=== PATIENT | male | born 1940 | race Caucasian/White ===

== ENCOUNTER 2016-11-28 15:08 | Inpatient (IN) | payer MEDICARE ==
--- NOTE | ~2016-11-28 | HP ---
History And Physical [place] [address] [facility] [place]. [address] NAME: CRISTOPHER REID JR : 40 STATUS : ADM IN [facility]#: [id number] AGE: 76 ADM/REG DATE : 11/28/16 MR#: [id number] REPORT SERV DATE: 11/28/16 DICTATED BY: MARTIN JACKSON DATE: 11/28/16 REPORT STATUS : Draft TRANSCRIBED BY: MODBear DATE: 11/28/16 DATE OF ADMISSION: 11/28/2016 HISTORY OF PRESENT ILLNESS: The patient is a very pleasant 76-year-old male, who presented to [facility] because of his severe inspiratory pain in his back as well as shortness of breath started yesterday morning at 8 a.m. On the day before, he had some sensation of nausea which was unexplainable. The patient reported that he was doing well until yesterday at 8 a.m. when he woke up, he tried to take a deep breath and had a severe back pain especially on the right side. It was getting worse, worsening on deep inspiration. He was short of breath, and he had significant hemoptysis. He coughed up blood. He denies any chest pain. No fever. No rash. No headache. His oxygen saturation on presentation was 86%. The patient said that he never had similar symptoms before. He did not travel anywhere recently by car or he did not have a long flight. He did not have any trauma to his legs. He did not have any recent surgeries. He does not have any family history of clotting disorders. He does not have any history of cancer. He denies any leg pain or leg swelling as well. PAST MEDICAL HISTORY: According to the patient, he has a history of diabetes on oral medications. He said that he has a history of COPD. He uses his oxygen only at night. He has a history of obstructive sleep apnea. 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 Also according to information here in the computer since the patient is a poor historian, he had an echocardiogram done on 10/31/2016 less than a month ago and it showed that he had mildly dilated left ventricle with low normal or mildly elevated reduced systolic function with ejection fraction to 45% to 50% and mild mitral stenosis with mild regurgitation and he had also moderate aortic stenosis. The patient reported that he had a history of heart attack in the past. No stents. No coronary artery bypass grafting. His tours hostess is Dr. Rosales. He has also history of hypertension and hyperlipidemia. 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 SOCIAL HISTORY: He used to live alone, but now he is relocating and going to live with his sister and he is in the process of moving. He still smokes. He used to smoke one pack a day for many years, but now he smokes a couple of cigarettes. No alcohol. No recreational drug use. FAMILY HISTORY: Mother of lung cancer. Father of dissection of the aneurysm of the ascending aorta. HOME MEDICATIONS: Aspirin 325 mg daily, carvedilol 12.5 mg p.o. b.i.d., Tylenol 2 tablets as needed for sleep, losartan 100 mg daily, metformin 750 p.o. daily, multivitamins daily, and pravastatin 40 mg at bedtime. History And Physical [address] [address] NAME: CRISTOPHER REID JR : 40 STATUS : ADM IN [facility]#: [id number] AGE: 76 ADM/REG DATE : 11/28/16 MR#: [id number] REPORT SERV DATE: 11/28/16 DICTATED BY: MARTIN JACKSON DATE: 11/28/16 REPORT STATUS : Draft TRANSCRIBED BY: MODBear DATE: 11/28/16 REVIEW OF SYSTEMS: A 14-point review of systems done and all are negative except what is stated in the history of present illness. PHYSICAL EXAMINATION: GENERAL: Well-nourished well-developed male, not in acute distress. Resting quietly. VITAL SIGNS: Blood pressure 173/79 and then decreased to 150/70, heart rate 76, respiratory rate 24, oxygen saturation was 86% on room air and 94% on 2 L nasal cannula. HEENT: Head atraumatic, normocephalic. Conjunctivae clear. Pupils are equal and reactive to light and accommodation. Extraocular muscles are intact. NECK: Supple. Trachea is midline. No supraclavicular or cervical lymphadenopathy. LUNGS: Mild rales in the right lower lung. Decreased respiratory effort because of the inspiratory pain. The left lung looks clear. CARDIOVASCULAR SYSTEM: Regular rate and rhythm. Point of maximal impulse not displaced. ABDOMEN: Soft, nontender, nondistended. Positive normoactive bowel sounds. No organomegaly. EXTREMITIES: No clubbing or cyanosis. No edema. SKIN: Normal color and turgor. NEUROLOGIC: Awake, alert, and oriented to time, place, and person. Muscle strength is 5/5 bilaterally on upper and lower extremities. PSYCHIATRIC: Normal mood and affect. LABORATORY RESULTS: Sodium 140, potassium 4.4, chloride 105, carbon dioxide 25, BUN 22, creatinine 0.82, blood sugar is 126. Troponin is less than 0.02. White count 11.6, hemoglobin 14.8, hematocrit 44.1, MCV 102.8, and a platelet count 180. PT 14.9 and INR 1.2. Influenza A and B screen be negative. Chest x-ray: Increased interstitial prominence likely related to fibrosis. The differential diagnosis will include superimposed interstitial edema. No pleural effusions. CTA of the chest, which was done in the emergency room, showed large burden of pulmonary emboli with large saddle embolus extending across the midline. Possible developing pulmonary infarction in the right upper lung, chronic pulmonary fibrosis. EKG showed normal sinus rhythm with left ventricular hypertrophy. Inferior infarction of undetermined age. Cannot rule out anterior infarction of indeterminate age. Ventricular rate of 75. ASSESSMENT AND PLAN: 1. This is a very pleasant 76-year-old male who with a past medical history of pulmonary fibrosis, tobacco use, history of coronary artery disease with a history moderate aortic stenosis and some valvular disease and mild chronic systolic dysfunction, presented with large saddle pulmonary embolism with pulmonary infarction. It is unclear what triggered these infarction since the patient denied any risk factors. The patient is already started on heparin drip in the emergency room. We will continue heparin drip as well as we will start the patient on Coumadin and check PT/INR and History And Physical [address] [address] NAME: CRISTOPHER REID JR : 40 STATUS : ADM IN [facility]#: [id number] AGE: 76 ADM/REG DATE : 11/28/16 MR#: [id number] REPORT SERV DATE: 11/28/16 DICTATED BY: MARTIN JACKSON DATE: 11/28/16 REPORT STATUS : Draft TRANSCRIBED BY: LAVERN DATE: 11/28/16 Pharmacy will continue this. In the same time, I will ask heel caser to check the cost of Eliquis or Xarelto. I also told the patient that since this is a very large pulmonary embolism with pulmonary infarction, he will need to be most likely on long- time anticoagulation. We will also recommend him to follow up with track helper for further investigation why he had this large pulmonary embolism. 2. Hypertension will be treated as needed. We will continue his home antihypertensive medications. We will treat as needed as well the blood pressure will remain elevated. 3. I will reduce the dose of his home aspirin to 81 mg daily. 4. I will also reorder echocardiogram. The patient had an echocardiogram in October this year before the event, but I will repeat echocardiogram again to see if there is a right ventricular strain with such a large pulmonary embolism as well as I will order bilateral lower extremity ultrasound on this patient. Everything was discussed with the patient. The patient is currently stable. MG/LAVERN Martin Jackson M.D. / [id number] CC: Rashid Martinez M.D.
--- NOTE | ~2016-11-28 | DS ---
Discharge Summary [facility] [address] [place]. [address] NAME: CRISTOPHER REID JR : 40 STATUS : DIS IN PAT#: [id number] AGE: 76 ADM/REG DATE : 11/28/16 MR#: [id number] REPORT SERV DATE: 12/02/16 DICTATED BY: DATE: REPORT STATUS : Draft TRANSCRIBED BY: MODL DATE: 12/01/16 ADMISSION DATE: 11/28/2016 DISCHARGE DATE: 12/01/2016 [facility] DISCHARGE DIAGNOSES: 1. Saddle embolism. 2. Right lower extremity deep venous thrombosis. 3. Right upper lobe pulmonary infarct. 4. Chronic pulmonary fibrosis. 5. Hypertension. 6. Hyperlipidemia. 7. Coronary artery disease with prior non-ST elevation myocardial infarction. 8. Enw-mbbfjfj-oiymjiuyq diabetes mellitus type 2. IMAGIN. CTA of the chest showing a large saddle pulmonary embolus. 2. Bilateral lower extremity venous Doppler ultrasound showing extensive right lower extremity DVT. 3. Echocardiogram without evidence of right ventricular strain and normal pulmonary artery pressure. PERTINENT LABS: Hemoglobin 13.4, INR 1.2. Creatinine 0.8. Liver enzymes normal. Troponin negative. BNP negative. BRIEF HISTORY: For full details, please see the previously dictated history of present illness by Dr. Leanne Gandhi. This is a 76-year-old white male with past medical history of hypertension, hyperlipidemia, coronary artery disease, diabetes mellitus type 2, chronic pulmonary fibrosis, using nocturnal oxygen who presented to the emergency department with chief complaint of shortness of breath, feeling as if he was unable to catch his breath, and pleuritic right-sided chest pain. CTA in the emergency department revealed a large saddle pulmonary embolism. He was admitted to the Hospitalist Service for further management. HOSPITAL COURSE: The patient was placed on unfractionated heparin and Coumadin for management of the saddle embolus. Bilateral lower extremity venous Doppler ultrasounds were obtained revealing extensive right lower extremity DVT, but no left lower extremity thrombus. Surprisingly, the patient was asymptomatic from the right lower extremity DVT with no evidence of leg swelling, erythema, warmth, or Homans sign. Echocardiogram was obtained to evaluate for right ventricular strain given the extent of thromboembolism. There was normal pulmonary artery pressure with no evidence of right ventricular strain. BNP and troponin were negative as well. Thus, the patient was not felt to benefit from placement of an IVC filter, per current chest guidelines. Also per current chest guidelines, the patient is recommended to be discharged on a novel anticoagulant given that he is requiring minimal supplemental oxygen, with stable vital Discharge Summary [place] [id number] [place]. [address] NAME: CRISTOPHER REID JR : 40 STATUS : DIS IN PAT#: [id number] AGE: 76 ADM/REG DATE : 11/28/16 MR#: [id number] REPORT SERV DATE: 12/02/16 DICTATED BY: DATE: REPORT STATUS : Draft TRANSCRIBED BY: MODL DATE: 12/01/16 signs, no evidence of hypotension, tachycardia, or presyncope this admission. Xarelto has been chosen and is affordable per the patient's formulary, so he is being transitioned to Xarelto for discharge. He will need to take 15 mg p.o. twice a day for 21 days and then Xarelto 20 mg p.o. daily for the next six months, to be monitored outpatient by primary care provider, Dr. Rashid Martinez. The patient currently has been using oxygen only at night, but he did qualify for daytime oxygen usage as well, and was provided with an order for 2 L of oxygen to use continuously, until re-evaluated by Dr. Martinez. Interestingly, no risk factors for extensive venous thromboembolism could be determined this admission. The patient is up to date on his cancer screenings per him and has had no other risk factors of procoagulant medications, or prolonged immobility. He may need to be more extensively evaluated for occult malignancy in the outpatient setting. Defer to primary care provider. DISCHARGE DISPOSITION: The patient is discharged to home in the care of his family with no specific activity or dietary restrictions aside from wearing his oxygen 2 L continuously as above, and to follow up with Dr. Rashid Martinez within one to two weeks. DISCHARGE MEDICATIONS: 1. Aspirin 81 mg p.o. daily. 2. Coreg 12.5 mg p.o. twice a day. 3. Losartan 100 mg p.o. q.h.s. 4. Multivitamin one tablet p.o. daily. 5. Pravastatin 40 mg p.o. q.h.s. 6. Glucophage 750 mg p.o. daily. 7. Diphenhydramine two tablets p.o. q.h.s. p.r.n. insomnia. 8. Xarelto 15 mg p.o. b.i.d. for 15 days and then 20 mg p.o. daily for six months. 9. Lortab 5/325 mg p.o. q.6 hours p.r.n. pain, 30 tablets dispensed with no refills. Thirty five minutes was spent in completion of the discharge. OKSANA/LAVERN James Rosario M.D. / [id number] CC: Rashid Martinez M.D.
[2016-11-28 11:53] LABS: BASOPHILS 0.3 %; BASOPHILS ABSOLUTE 0.03 10/3/uL (0.0-0.16); EOSINOPHILS 2.4 %; EOSINOPHILS ABSOLUTE 0.28 10/3/uL (0.0-0.53); HEMATOCRIT 44.1 % (40.0-51.0); HEMOGLOBIN 14.8 g/dL (13.6-17.8); IMMATURE GRANULOCYTES 0.5 %; IMMATURE GRANULOCYTES ABSOLUTE 0.06 10/3/uL (0.0-0.11); LYMPHOCYTES 12.9 %; LYMPHOCYTES ABSOLUTE 1.49 10/3/uL (0.67-4.30); MEAN CORPUS HGB CONC 33.6 g/dL (32.0-36.0); MEAN CORPUSCULAR HEMOGLOB 34.5 pg (26.0-34.0); MEAN PLATELET VOLUME 9.6 fL (9.2-13.0); MONOCYTES 9.2 %; MONOCYTES ABSOLUTE 1.07 10/3/uL (0.21-1.20); NEUTROPHILS 74.7 %; NEUTROPHILS ABSOLUTE 8.66 10/3/uL (2.02-8.40); PLATELET COUNT 180 10/3/uL (150-400); RBC DISTRIBUTION WIDTH 13.4 % (12.0-16.0); RED CELL COUNT 4.29 10/6/uL (4.7-6.1)
[2016-11-28 11:55] LABS: ER CBC TAT 0 Hrs 10 Mins; MANUAL DIFF NO %; MEAN CORPUSCULAR VOLUME 102.8 fL (80-100); WHITE BLOOD CELLS 11.6 10/3/uL (4.5-10.5)
[2016-11-28 12:02] LABS: INTERNATIONAL NORMAL RATI 1.2 UNITS (-); PARTIAL THROMBO TIME 31.2 SEC (22.5-37.2); PROTIME (NOT ORD) 14.9 SEC (12.0-14.5)
[2016-11-28 12:21] LABS: BUN (BLOOD UREA NITROGEN) 22 MG/DL (6-23); CHEST PAIN PROFILE TAT 0 Hrs 36 Mins; CHLORIDE, SERUM 105 MMOL/L (96-112); CO2 (CARBON DIOXIDE) 25 MMOL/L (24-34); CREATININE 0.82 MG/DL (0.70-1.30); GFR AFRICAN AMERICAN 100 ML/MIN (>=60); GFR NON AFRICAN AMERICAN 86 ML/MIN (>=60); GLUCOSE, SERUM 126 MG/DL (60-99); POTASSIUM, SERUM 4.4 MMOL/L (3.5-5.3); SODIUM, SERUM 140 MMOL/L (135-148); TROPONIN I <0.02 NG/ML (<0.05)
[~2016-11-28 15:08] MED LIST: ASABAYER PO; COREG12 PO; COZAAR100 MG PO; GLUCOPHXR7 PO; MULTIVITAMI1 PO; PRAVACHOL40 MG PO; TYLENOL PM PO
[2016-11-28 15:21] LABS: INFLUENZA A SCREEN NEGATIVE (NEGATIVE); INFLUENZA B SCREEN NEGATIVE (NEGATIVE)
[2016-11-29 06:33] LABS: BASOPHILS 0.3 %; BASOPHILS ABSOLUTE 0.03 10/3/uL (0.0-0.16); EOSINOPHILS 2.7 %; EOSINOPHILS ABSOLUTE 0.25 10/3/uL (0.0-0.53); HEMATOCRIT 40.6 % (40.0-51.0); HEMOGLOBIN 13.4 g/dL (13.6-17.8); IMMATURE GRANULOCYTES 0.6 %; IMMATURE GRANULOCYTES ABSOLUTE 0.06 10/3/uL (0.0-0.11); LYMPHOCYTES 20.8 %; LYMPHOCYTES ABSOLUTE 1.95 10/3/uL (0.67-4.30); MEAN CORPUSCULAR HEMOGLOB 33.1 pg (26.0-34.0); MEAN CORPUSCULAR VOLUME 100.2 fL (80-100); MEAN PLATELET VOLUME 9.8 fL (9.2-13.0); MONOCYTES 7.5 %; NEUTROPHILS 68.1 %; NEUTROPHILS ABSOLUTE 6.39 10/3/uL (2.02-8.40); PLATELET COUNT 202 10/3/uL (150-400); RBC DISTRIBUTION WIDTH 13.4 % (12.0-16.0); RED CELL COUNT 4.05 10/6/uL (4.7-6.1); WHITE BLOOD CELLS 9.4 10/3/uL (4.5-10.5)
[2016-11-29 06:34] LABS: MANUAL DIFF NO %
[2016-11-29 06:37] LABS: INTERNATIONAL NORMAL RATI 1.3 UNITS (-); PROTIME (NOT ORD) 15.8 SEC (12.0-14.5)
[2016-11-29 06:49] LABS: CALCIUM, SERUM 8.6 MG/DL (8.5-10.4); CHLORIDE, SERUM 103 MMOL/L (96-112); CO2 (CARBON DIOXIDE) 26 MMOL/L (24-34); CREATININE 0.78 MG/DL (0.70-1.30); GFR AFRICAN AMERICAN 102 ML/MIN (>=60); GFR NON AFRICAN AMERICAN 88 ML/MIN (>=60); GLUCOSE, SERUM 117 MG/DL (60-99); SODIUM, SERUM 140 MMOL/L (135-148)
[2016-11-29 06:54] LABS: BUN (BLOOD UREA NITROGEN) 14 MG/DL (6-23)
[2016-11-30 05:19] LABS: INTERNATIONAL NORMAL RATI 1.2 UNITS (-); PROTIME (NOT ORD) 15.5 SEC (12.0-14.5)
[2016-11-30 05:38] LABS: BASOPHILS 0.6 %; BASOPHILS ABSOLUTE 0.04 10/3/uL (0.0-0.16); EOSINOPHILS 3.5 %; EOSINOPHILS ABSOLUTE 0.25 10/3/uL (0.0-0.53); HEMATOCRIT 40.9 % (40.0-51.0); HEMOGLOBIN 13.5 g/dL (13.6-17.8); IMMATURE GRANULOCYTES 0.7 %; IMMATURE GRANULOCYTES ABSOLUTE 0.05 10/3/uL (0.0-0.11); LYMPHOCYTES 21.5 %; LYMPHOCYTES ABSOLUTE 1.55 10/3/uL (0.67-4.30); MEAN CORPUSCULAR HEMOGLOB 33.8 pg (26.0-34.0); MEAN CORPUSCULAR VOLUME 102.3 fL (80-100); MEAN PLATELET VOLUME 9.6 fL (9.2-13.0); MONOCYTES 8.2 %; MONOCYTES ABSOLUTE 0.59 10/3/uL (0.21-1.20); NEUTROPHILS 65.5 %; NEUTROPHILS ABSOLUTE 4.74 10/3/uL (2.02-8.40); PLATELET COUNT 174 10/3/uL (150-400); RBC DISTRIBUTION WIDTH 13.1 % (12.0-16.0); WHITE BLOOD CELLS 7.2 10/3/uL (4.5-10.5)
[2016-11-30 05:45] LABS: MANUAL DIFF NO %
[2016-12-01 07:25] LABS: INTERNATIONAL NORMAL RATI 1.5 UNITS (-)
[2016-12-01 07:33] LABS: PROTIME (NOT ORD) 18.4 SEC (12.0-14.5)
[2016-12-01 07:47] LABS: PARTIAL THROMBO TIME 146.2 SEC (22.5-37.2)
[2016-12-01] MEDS ORDERED: ASAB PO (15:28)
[2016-12-01] MEDS ORDERED: XARELTO15 MG PO (15:29)
[2016-12-01] MEDS ORDERED: NORCO1 TA1 PO (15:30)
== END 2016-12-01 17:28 | disposition home or self-care (01) | DRG 176 ==
LOC: ER 15:08 → 6NO 18:18
PROVIDERS: Emergency Medicine; Hospitalist
DX: I26.92 Saddle embolus of pulmonary artery without acute cor pulmonale (principal); J84.10 Pulmonary fibrosis, unspecified; I82.411 Acute embolism and thrombosis of right femoral vein; I82.441 Acute embolism and thrombosis of right tibial vein; I82.4Z1 Acute embolism and thrombosis of unspecified deep veins of right distal lower extremity; E78.5 Hyperlipidemia, unspecified; I10 Essential (primary) hypertension; I25.10 Atherosclerotic heart disease of native coronary artery without angina pectoris; E11.9 Type 2 diabetes mellitus without complications; Z79.84 Long term (current) use of oral hypoglycemic drugs; I08.0 Rheumatic disorders of both mitral and aortic valves; F17.210 Nicotine dependence, cigarettes, uncomplicated; Z79.82 Long term (current) use of aspirin
CPT/HCPCS: 71020; 71275; 80048; 82962; 83735; 84484; 85025; 85610; 85730; 87804; 93005; 93308; 93970; 94640; 99291; A9270-GY; Q9967